=== PATIENT | male | born 1970 | race Caucasian/White ===

== ENCOUNTER 2016-10-07 14:52 | Outpatient (CLI) | payer BC, OTHER ==
--- NOTE | 2016-10-07 18:40 | Diagnostic Imaging Report ---
ROSCOE PARR [facility] [id number] [facility] [address] [address] Report Submission Date: Oct 07, 2016 3:39:56 PM CDT Patient Study Name: TRAV LEYVA Date: Oct 07, 2016 3:21:32 PM CDT Modality Type: CR Gender: M Description: CHEST : 68 Institution: [facility] Physician: ROSCOE PARR 3 views of the right ribs History: RIGHT RIB PAIN AFTER INJURY Findings: No comparison studies Heart is normal in size There is fracture deformity of the right posterior 5th and 6th ribs No pleural effusion or pneumothorax Impression: Fracture deformity of the right posterior 5th and 6th ribs, please correlate with clinical examination Electronically signed on Oct 07, 2016 3:39:56 PM CDT by: Alix FIERRO
== END 2016-10-07 14:53 ==
LOC: RAD 14:52
PROVIDERS: ATTEND Family Medicine
DX: R07.81 Pleurodynia (principal)
CPT/HCPCS: 71100